=== PATIENT | male | born 1955 | race African-American/Black ===

== ENCOUNTER 2018-10-23 23:38 | Emergency (ER) | payer BC, MEDICAID ==
[~2018-10-23] VITALS: Ht 185.4 cm; Wt 97.0 kg
[2018-10-24] MEDS ORDERED: KETOROLAC 30MG/ML VIAL IV STA (01:18)
[2018-10-24 01:36] LABS: HEMATOCRIT. 40.8 % (42.0-52.0); HEMOGLOBIN. 13.8 g/dL (14.0-18.0); MEAN CORPUSCULAR HEMOGLOBIN 33.7 pg (28.0-32.0); MEAN CORPUSCULAR VOLUME 99.6 fL (80.0-94.0); MEAN PLATELET VOLUME 7.7 fl (7.4-10.4); PLATELET 197 x1000/uL (130-400); RED CELL DISTRIBUTION WIDTH 13.6 % (11.6-14.6)
[2018-10-24 01:41] LABS: CHLORIDE 105 mEq/L (98-107)
[2018-10-24 02:10] LABS: PLATELET ESTIMATE NORMAL
[2018-10-24 03:13] VITALS: BP 155/77
== END 2018-10-24 03:59 | disposition home or self-care (01) ==
LOC: ER 23:49
DX: M79.10 Myalgia, unspecified site (principal); M32.9 Systemic lupus erythematosus, unspecified; M06.9 Rheumatoid arthritis, unspecified
CPT/HCPCS: 36415; 80053; 85025; 87804; 96374; 99283; J1885

== ENCOUNTER 2022-09-07 16:19 | Inpatient (IN) | payer MEDICARE, MEDICAID ==
[~2022-09-07] VITALS: Ht 182.9 cm; Wt 82.6 kg
[2022-09-07] MEDS ORDERED: ALBUTEROL (0.083%) 2.5MG/3ML NEB HHN STA (16:21)
[2022-09-07] MEDS ORDERED: METHYLPREDNISOLONE SOD SUCC 125 MG/2 ML VIAL IV STA (16:21)
[2022-09-07] MEDS ORDERED: IPRATROPIUM BROMIDE (0.02%) 0.5MG/2.5ML NEB HHN STA (16:21)
[2022-09-07 16:51] LABS: BASOPHILS % 1.1 % (0.0-2.0); HEMATOCRIT. 45.4 % (42.0-52.0); HEMOGLOBIN. 15.2 g/dL (14.0-18.0); LYMPHOCYTES % 14.7 % (20.0-50.0); MEAN CORPUSCULAR HEMOGLOBIN 33.6 pg (28.0-32.0); MEAN CORPUSCULAR VOLUME 100.5 fL (80.0-94.0); MEAN PLATELET VOLUME 8.8 fl (7.4-10.4); NEUTROPHILS % 76.2 % (40.0-76.0); PLATELET 117 x1000/uL (130-400); RED BLOOD CELL COUNT 4.52 mill/uL (4.7-6.1); RED CELL DISTRIBUTION WIDTH 13.2 % (11.6-14.6)
[2022-09-07 17:01] LABS: CHLORIDE 98 mEq/L (98-107)
[2022-09-07] MEDS ORDERED: ASPIRIN 325MG TABLET PO ONE (17:45)
[2022-09-07] MEDS ORDERED: ONDANSETRON HCL 4MG/2ML INJ IV PRN (23:45)
[2022-09-07] MEDS ORDERED: ACETAMINOPHEN 650MG/20.3ML UDC GT PRN (23:45)
[2022-09-07] MEDS ORDERED: NALOXONE HCL 0.4MG/ML VIAL IV PRN (23:45)
[2022-09-08] MEDS: HYDROCODONE/ACETAMINOPHEN 5/325MG TABLET PO PRN ×2 (00:13→06:25)
[2022-09-08] MEDS: IPRATROPIUM/ALBUTEROL 0.5-3(2.5)MG/3ML NEB NEB PRN ×3 (00:18→09:58)
[2022-09-08 05:38] LABS: BASOPHILS % 0.3 % (0.0-2.0); HEMATOCRIT. 41.4 % (42.0-52.0); HEMOGLOBIN. 13.9 g/dL (14.0-18.0); LYMPHOCYTES % 8.3 % (20.0-50.0); MEAN CORPUSCULAR HEMOGLOBIN 33.7 pg (28.0-32.0); MEAN CORPUSCULAR VOLUME 99.9 fL (80.0-94.0); MEAN PLATELET VOLUME 8.7 fl (7.4-10.4); MONOCYTES % 3.7 % (2.0-8.0); NEUTROPHILS % 87.7 % (40.0-76.0); PLATELET 116 x1000/uL (130-400); RED BLOOD CELL COUNT 4.14 mill/uL (4.7-6.1); RED CELL DISTRIBUTION WIDTH 12.9 % (11.6-14.6)
[2022-09-08] MEDS: METHYLPREDNISOLONE SOD SUCC 125 MG/2 ML VIAL IV SCH ×3 (08:35→23:03)
[2022-09-08] MEDS: FOLIC ACID 1MG TABLET PO SCH (10:27)
[2022-09-08] MEDS ORDERED: AZITHROMYCIN 500 MG TABLET PO NR (12:30)
[2022-09-08] MEDS ORDERED: ACETYLCYSTEINE 100MG/ML 10% VIAL 4ML INH SCH (14:00)
[2022-09-08 20:34] LABS: CREATINE KINASE MB FRACTION 5.7 ng/mL (0.5-3.6)
[2022-09-09] MEDS: ACETYLCYSTEINE 200MG/ML 20% VIAL 4ML INH SCH ×2 (00:18→13:44)
[2022-09-09] MEDS: ALBUTEROL (0.083%) 2.5MG/3ML NEB HHN SCH ×3 (00:18→20:52)
[2022-09-09] MEDS: IPRATROPIUM BROMIDE (0.02%) 0.5MG/2.5ML NEB HHN SCH ×3 (00:18→20:52)
[2022-09-09] MEDS: METHYLPREDNISOLONE SOD SUCC 125 MG/2 ML VIAL IV SCH ×2 (06:10→14:40)
[2022-09-09 08:00] VITALS: BP 149/84
[2022-09-09 08:42] VITALS: BP 152/77
[2022-09-09] MEDS: FOLIC ACID 1MG TABLET PO SCH (10:06)
[2022-09-09] MEDS: AZITHROMYCIN 250 MG TABLET PO SCH (10:06)
[2022-09-09 12:00] VITALS: BP 150/77
[2022-09-09] MEDS: HYDROCODONE/ACETAMINOPHEN 10/325MG TABLET PO PRN ×2 (14:40→21:08)
[2022-09-09 14:54] LABS: CLARITY URINE CLEAR (CLEAR); COLOR URINE YELLOW (YELLOW); KETONES URINE NEGATIVE (NEGATIVE); LEUKOCYTE ESTERASE URINE NEGATIVE (NEGATIVE); NITRITE URINE NEGATIVE (NEGATIVE); OCCULT BLOOD URINE NEGATIVE (NEGATIVE); PROTEIN URINE 1+ (NEGATIVE); SPECIFIC GRAVITY URINE 1.023 (1.005-1.030)
[2022-09-09 15:11] LABS: *AMPHETAMINES SCREEN URINE NEGATIVE (NEGATIVE); *BARBITURATES SCREEN URINE NEGATIVE (NEGATIVE); *BENZODIAZEPINES SCREEN URINE NEGATIVE (NEGATIVE); *COCAINE SCREEN URINE PRESUMTIVE POSITIVE (NEGATIVE); CANNABINOID URINE SCREEN NEGATIVE (NEGATIVE); METHADONE URINE SCREEN NEGATIVE (NEGATIVE); OPIATES URINE SCREEN PRESUMTIVE POSITIVE (NEGATIVE); PHENCYCLIDINE URINE SCREEN NEGATIVE (NEGATIVE)
[2022-09-09 16:00] VITALS: BP 130/82
[2022-09-09 20:00] VITALS: BP 153/90
[2022-09-09] MEDS: METHYLPREDNISOLONE SOD SUCC 40 MG/ML VIAL IV SCH (21:07)
[2022-09-10] VITALS: BP 145/65
[2022-09-10] MEDS: ACETYLCYSTEINE 200MG/ML 20% VIAL 4ML INH SCH ×4 (01:14→21:51)
[2022-09-10] MEDS: ALBUTEROL (0.083%) 2.5MG/3ML NEB HHN SCH ×4 (01:15→21:54)
[2022-09-10] MEDS: IPRATROPIUM BROMIDE (0.02%) 0.5MG/2.5ML NEB HHN SCH ×4 (01:15→21:54)
[2022-09-10 04:00] VITALS: BP 121/57
[2022-09-10] MEDS: METHYLPREDNISOLONE SOD SUCC 40 MG/ML VIAL IV SCH ×3 (05:22→21:50)
[2022-09-10 08:00] VITALS: BP_SYST 131; BP_SYST 158; BP_DIAS 58; BP_DIAS 68
[2022-09-10] MEDS: AZITHROMYCIN 250 MG TABLET PO SCH (09:18)
[2022-09-10] MEDS: FOLIC ACID 1MG TABLET PO SCH (09:18)
[2022-09-10] MEDS: HYDROCODONE/ACETAMINOPHEN 10/325MG TABLET PO PRN ×2 (09:18→15:51)
[2022-09-10 20:00] VITALS: BP 155/82
[2022-09-11] VITALS: BP 137/78
[2022-09-11] MEDS: IPRATROPIUM BROMIDE (0.02%) 0.5MG/2.5ML NEB HHN SCH ×4 (02:44→20:34)
[2022-09-11] MEDS: ALBUTEROL (0.083%) 2.5MG/3ML NEB HHN SCH ×4 (02:44→20:35)
[2022-09-11 04:00] VITALS: BP 135/80
[2022-09-11 07:25] LABS: HEMATOCRIT. 39.7 % (42.0-52.0); MEAN CORPUSCULAR HEMOGLOBIN 33.2 pg (28.0-32.0); MEAN CORPUSCULAR VOLUME 101.5 fL (80.0-94.0); MEAN PLATELET VOLUME 9.3 fl (7.4-10.4); PLATELET 145 x1000/uL (130-400); RED BLOOD CELL COUNT 3.92 mill/uL (4.7-6.1)
[2022-09-11 08:00] VITALS: BP 130/75
[2022-09-11 08:42] LABS: CHLORIDE 98 mEq/L (98-107)
[2022-09-11 09:03] LABS: PHOSPHORUS 2.3 mg/dL (2.5-4.9)
[2022-09-11] MEDS: METHYLPREDNISOLONE SOD SUCC 40 MG/ML VIAL IV SCH ×2 (09:45→20:33)
[2022-09-11] MEDS: AZITHROMYCIN 250 MG TABLET PO SCH (09:46)
[2022-09-11] MEDS: FOLIC ACID 1MG TABLET PO SCH (09:46)
[2022-09-11] MEDS: ACETYLCYSTEINE 200MG/ML 20% VIAL 4ML INH SCH ×2 (09:50→16:20)
[2022-09-11 12:00] VITALS: BP 133/86
[2022-09-11 13:41] LABS: PLATELET ESTIMATE NORMAL
[2022-09-11 16:00] VITALS: BP 132/70
[2022-09-11 20:00] VITALS: BP 147/73
[2022-09-12] VITALS: BP 155/72
[2022-09-12] MEDS: ALBUTEROL (0.083%) 2.5MG/3ML NEB HHN SCH ×4 (02:20→22:06)
[2022-09-12] MEDS: IPRATROPIUM BROMIDE (0.02%) 0.5MG/2.5ML NEB HHN SCH ×4 (02:21→22:02)
[2022-09-12] MEDS: ACETYLCYSTEINE 200MG/ML 20% VIAL 4ML INH SCH ×4 (02:22→22:08)
[2022-09-12 04:00] VITALS: BP 123/55
[2022-09-12 08:00] VITALS: BP 146/78
[2022-09-12] MEDS ORDERED: MED4 MT (08:12)
[2022-09-12 08:26] LABS: FOLIC ACID (FOLATE) SERUM 12.1 ng/mL (>5.38)
[2022-09-12] MEDS: AZITHROMYCIN 250 MG TABLET PO SCH (10:12)
[2022-09-12] MEDS: FOLIC ACID 1MG TABLET PO SCH (10:12)
[2022-09-12] MEDS: METHYLPREDNISOLONE SOD SUCC 40 MG/ML VIAL IV SCH ×2 (10:15→21:16)
[2022-09-12 12:00] VITALS: BP 127/89
[2022-09-12 16:00] VITALS: BP 144/98
[2022-09-12 20:00] VITALS: BP 161/84
[2022-09-13] VITALS: BP 158/83
[2022-09-13] MEDS: ALBUTEROL (0.083%) 2.5MG/3ML NEB HHN SCH ×4 (01:59→14:59)
[2022-09-13] MEDS: IPRATROPIUM BROMIDE (0.02%) 0.5MG/2.5ML NEB HHN SCH ×4 (01:59→14:59)
[2022-09-13 04:00] VITALS: BP 135/81
[2022-09-13 08:00] VITALS: BP 142/76
[2022-09-13] MEDS: METHYLPREDNISOLONE SOD SUCC 40 MG/ML VIAL IV SCH ×2 (08:43→20:50)
[2022-09-13] MEDS: FOLIC ACID 1MG TABLET PO SCH (08:43)
[2022-09-13] MEDS: ACETYLCYSTEINE 200MG/ML 20% VIAL 4ML INH SCH ×3 (09:26→22:42)
[2022-09-13 12:00] VITALS: BP 127/79
[2022-09-13] MEDS: FUROSEMIDE 40MG/4ML VIAL IVP SCH (16:30)
[2022-09-13 16:56] LABS: BG BASE EXCESS 11.3 mmol/L (-2.0-2.0); BG CARBOXYHEMOGLOBIN 0.5 % (0.5-1.5); BG DEOXYHEMOGLOBIN 8.5 % (0.0-5.0); BG FRACTION INSPIRED OXYGEN 32; BG HCO3 ACT 37.8 mmol/L (22.0-26.0); BG METHEMOGLOBIN 0.2 % (0.0-1.5); BG OXYGEN SATURATION 91.4 % (92.0-98.5); BG OXYHEMOGLOBIN 90.8 % (94.0-97.0); BG PCO2 55.4 mmHg (35.0-45.0); BG PH 7.452 (7.350-7.450); BG PO2 59.1 mmHg (75.0-100.0); BG SAMPLE SITE RIGHT RADIAL; BG TOTAL HEMOGLOBIN 15.9 g/dL (12.0-18.0); BG VENT MODE NASAL CANNULA
[2022-09-13 20:00] VITALS: BP 136/76
[2022-09-13] MEDS: IPRATROPIUM BROMIDE (0.02%) 0.5MG/2.5ML NEB HHN PRN (20:01)
[2022-09-13] MEDS: ALBUTEROL (0.083%) 2.5MG/3ML NEB HHN PRN (20:01)
[2022-09-14] VITALS: BP 125/65
[2022-09-14] MEDS: ALBUTEROL (0.083%) 2.5MG/3ML NEB HHN PRN (02:33)
[2022-09-14] MEDS: IPRATROPIUM BROMIDE (0.02%) 0.5MG/2.5ML NEB HHN PRN (02:33)
[2022-09-14 04:00] VITALS: BP 151/79
[2022-09-14 08:00] VITALS: BP 135/87
[2022-09-14] MEDS: IPRATROPIUM BROMIDE (0.02%) 0.5MG/2.5ML NEB HHN SCH ×3 (08:41→20:49)
[2022-09-14] MEDS: ALBUTEROL (0.083%) 2.5MG/3ML NEB HHN SCH ×3 (08:41→20:48)
[2022-09-14] MEDS: FOLIC ACID 1MG TABLET PO SCH (09:14)
[2022-09-14] MEDS: FUROSEMIDE 40MG/4ML VIAL IVP SCH (09:14)
[2022-09-14] MEDS: METHYLPREDNISOLONE SOD SUCC 40 MG/ML VIAL IV SCH (09:14)
[2022-09-14 10:06] LABS: HEMATOCRIT. 43.3 % (42.0-52.0); HEMOGLOBIN. 14.6 g/dL (14.0-18.0); MEAN CORPUSCULAR HEMOGLOBIN 33.5 pg (28.0-32.0); MEAN CORPUSCULAR VOLUME 99.4 fL (80.0-94.0); MEAN PLATELET VOLUME 8.4 fl (7.4-10.4); PLATELET 337 x1000/uL (130-400); RED BLOOD CELL COUNT 4.36 mill/uL (4.7-6.1); RED CELL DISTRIBUTION WIDTH 13.5 % (11.6-14.6)
[2022-09-14 10:13] LABS: CHLORIDE 96 mEq/L (98-107)
[2022-09-14] MEDS ORDERED: METHYLPREDNISOLONE SOD SUCC 40 MG/ML VIAL IV NR (10:30)
[2022-09-14 10:52] LABS: BG BASE EXCESS 13.1 mmol/L (-2.0-2.0); BG CARBOXYHEMOGLOBIN 0.5 % (0.5-1.5); BG DEOXYHEMOGLOBIN 8.9 % (0.0-5.0); BG HCO3 ACT 40.6 mmol/L (22.0-26.0); BG METHEMOGLOBIN 0.2 % (0.0-1.5); BG OXYHEMOGLOBIN 90.4 % (94.0-97.0); BG PCO2 61.5 mmHg (35.0-45.0); BG PH 7.437 (7.350-7.450); BG PO2 59.7 mmHg (75.0-100.0); BG SAMPLE SITE RIGHT BRACHIAL; BG TOTAL HEMOGLOBIN 16.1 g/dL (12.0-18.0); BG VENT MODE MASK - VENTI
[2022-09-14 11:34] LABS: PLATELET ESTIMATE NORMAL
[2022-09-14 12:00] VITALS: BP 106/78
[2022-09-14] MEDS ORDERED: METHYLPREDNISOLONE SOD SUCC 125 MG/2 ML VIAL IV NR (14:45)
[2022-09-14] MEDS ORDERED: CEFTRIAXONE 1,000 MG in DEXTROSE 5% WATER 50 ML IV SCH (15:30)
[2022-09-14 16:00] VITALS: BP 152/68
[2022-09-14] MEDS ORDERED: AZITHROMYCIN 500 MG in DEXT 5% WATER 250 ML IV SCH (16:00)
[2022-09-14 20:00] VITALS: BP 147/93
[2022-09-14] MEDS: THEOPHYLLINE ANHYDROUS 80 MG/15 ML 120ML PO SCH (21:00)
[2022-09-14] MEDS: METHYLPREDNISOLONE SOD SUCC 125 MG/2 ML VIAL IV SCH (21:14)
[2022-09-15] VITALS: BP 148/85
[2022-09-15] MEDS: ALBUTEROL (0.083%) 2.5MG/3ML NEB HHN SCH ×5 (01:49→20:25)
[2022-09-15] MEDS: IPRATROPIUM BROMIDE (0.02%) 0.5MG/2.5ML NEB HHN SCH ×6 (01:49→21:32)
[2022-09-15 04:00] VITALS: BP 140/83
[2022-09-15] MEDS: METHYLPREDNISOLONE SOD SUCC 125 MG/2 ML VIAL IV SCH ×3 (06:23→21:23)
[2022-09-15] MEDS: THEOPHYLLINE ANHYDROUS 80 MG/15 ML 120ML PO SCH (06:23)
[2022-09-15 08:00] VITALS: BP 139/86
[2022-09-15] MEDS: FUROSEMIDE 40MG/4ML VIAL IVP SCH (08:42)
[2022-09-15] MEDS: FOLIC ACID 1MG TABLET PO SCH (08:42)
[2022-09-15 12:00] VITALS: BP 129/65
[2022-09-15 12:19] LABS: BG BASE EXCESS 9.1 mmol/L (-2.0-2.0); BG CARBOXYHEMOGLOBIN 0.4 % (0.5-1.5); BG DEOXYHEMOGLOBIN 7.6 % (0.0-5.0); BG FRACTION INSPIRED OXYGEN 35; BG METHEMOGLOBIN 0.1 % (0.0-1.5); BG OXYGEN SATURATION 92.4 % (92.0-98.5); BG OXYHEMOGLOBIN 91.9 % (94.0-97.0); BG PCO2 69.9 mmHg (35.0-45.0); BG PH 7.353 (7.350-7.450); BG PO2 69.2 mmHg (75.0-100.0); BG SAMPLE SITE RIGHT RADIAL; BG TOTAL HEMOGLOBIN 16.1 g/dL (12.0-18.0); BG VENT MODE MASK - VENTI
[2022-09-15 13:06] LABS: 25-HYDROXY VITAMIN D3 10 ng/mL (.)
[2022-09-15] MEDS ORDERED: VANCOMYCIN 1500MG in DEXTROSE 5% WATER 250ML IV NR (15:00)
[2022-09-15] MEDS: PIPERACILLIN/TAZOBACTAM 3.375 G in DEXTROSE 5% WATER 50 ML IV SCH ×2 (15:03→21:58)
[2022-09-15 16:00] VITALS: BP 135/78
[2022-09-15] MEDS: ERGOCALCIFEROL 50000UNITS CAPSULE PO SCH (17:38)
[2022-09-15 20:00] VITALS: BP 114/72
[2022-09-15] MEDS: VANCOMYCIN 1G PREMIX 200 ML IV SCH (23:52)
[2022-09-16] VITALS (12 sets, daily range): BP systolic 113–159; BP diastolic 51–91
[2022-09-16] MEDS: PIPERACILLIN/TAZOBACTAM 3.375 G in DEXTROSE 5% WATER 50 ML IV SCH ×3 (05:00→21:50)
[2022-09-16] MEDS: METHYLPREDNISOLONE SOD SUCC 125 MG/2 ML VIAL IV SCH ×3 (05:00→21:49)
[2022-09-16] MEDS ORDERED: FUROSEMIDE 40MG/4ML VIAL IVP SCH ×2 (08:45→18:00)
[2022-09-16] MEDS: VANCOMYCIN 1G PREMIX 200 ML IV SCH ×2 (08:47→20:38)
[2022-09-16] MEDS: FOLIC ACID 1MG TABLET PO SCH (08:48)
[2022-09-16] MEDS: IPRATROPIUM BROMIDE (0.02%) 0.5MG/2.5ML NEB HHN SCH ×3 (09:00→21:26)
[2022-09-16] MEDS: ALBUTEROL (0.083%) 2.5MG/3ML NEB HHN SCH ×3 (09:00→21:25)
[2022-09-16] MEDS: AMLODIPINE 5MG TABLET PO SCH (09:01)
[2022-09-16] MEDS: ISOSORBIDE DINITRATE 10MG TABLET PO SCH ×3 (09:01→17:31)
[2022-09-16] MEDS: SPIRONOLACTONE 25MG TABLET PO SCH (09:02)
[2022-09-16 12:07] LABS: BG BASE EXCESS 11.9 mmol/L (-2.0-2.0); BG CARBOXYHEMOGLOBIN 0.3 % (0.5-1.5); BG HCO3 ACT 40.3 mmol/L (22.0-26.0); BG METHEMOGLOBIN 0.1 % (0.0-1.5); BG OXYHEMOGLOBIN 93.6 % (94.0-97.0); BG PCO2 68.7 mmHg (35.0-45.0); BG PH 7.386 (7.350-7.450); BG PO2 70.6 mmHg (75.0-100.0); BG SAMPLE SITE RIGHT BRACHIAL; BG TOTAL HEMOGLOBIN 14.9 g/dL (12.0-18.0); BG VENT MODE VENTI MASK
[2022-09-17] VITALS (17 sets, daily range): BP systolic 100–161; BP diastolic 54–90
[2022-09-17] MEDS: ALBUTEROL (0.083%) 2.5MG/3ML NEB HHN SCH ×4 (01:10→20:17)
[2022-09-17] MEDS: IPRATROPIUM BROMIDE (0.02%) 0.5MG/2.5ML NEB HHN SCH ×4 (01:11→20:17)
[2022-09-17] MEDS: METHYLPREDNISOLONE SOD SUCC 125 MG/2 ML VIAL IV SCH ×2 (05:01→13:58)
[2022-09-17] MEDS: PIPERACILLIN/TAZOBACTAM 3.375 G in DEXTROSE 5% WATER 50 ML IV SCH ×3 (05:01→21:10)
[2022-09-17 05:49] LABS: CHLORIDE 92 mEq/L (98-107)
[2022-09-17] MEDS: AMLODIPINE 5MG TABLET PO SCH (08:28)
[2022-09-17] MEDS: VANCOMYCIN 1G PREMIX 200 ML IV SCH (08:28)
[2022-09-17] MEDS: ISOSORBIDE DINITRATE 10MG TABLET PO SCH ×3 (08:28→17:57)
[2022-09-17] MEDS: FOLIC ACID 1MG TABLET PO SCH (08:28)
[2022-09-17] MEDS: SPIRONOLACTONE 25MG TABLET PO SCH (08:28)
[2022-09-17] MEDS ORDERED: FUROSEMIDE 20MG/2ML VIAL IVP SCH (09:00)
[2022-09-17] MEDS: METHYLPREDNISOLONE SOD SUCC 40 MG/ML VIAL IV SCH (17:59)
[2022-09-17] MEDS: VANCOMYCIN 750MG PREMIX 150 ML IV SCH (20:15)
[2022-09-18] VITALS: BP 137/70
[2022-09-18] MEDS: ALBUTEROL (0.083%) 2.5MG/3ML NEB HHN SCH ×4 (01:25→20:25)
[2022-09-18] MEDS: IPRATROPIUM BROMIDE (0.02%) 0.5MG/2.5ML NEB HHN SCH ×4 (01:25→20:25)
[2022-09-18 04:00] VITALS: BP 131/63
[2022-09-18] MEDS: PIPERACILLIN/TAZOBACTAM 3.375 G in DEXTROSE 5% WATER 50 ML IV SCH ×3 (05:06→21:35)
[2022-09-18 06:18] LABS: CHLORIDE 94 mEq/L (98-107); PHOSPHORUS 1.7 mg/dL (2.5-4.9)
[2022-09-18 08:00] VITALS: BP 128/74
[2022-09-18] MEDS: METHYLPREDNISOLONE SOD SUCC 40 MG/ML VIAL IV SCH ×2 (09:38→18:15)
[2022-09-18] MEDS: AMLODIPINE 5MG TABLET PO SCH (09:38)
[2022-09-18] MEDS: ISOSORBIDE DINITRATE 10MG TABLET PO SCH ×3 (09:38→18:15)
[2022-09-18] MEDS: FOLIC ACID 1MG TABLET PO SCH (09:38)
[2022-09-18] MEDS: SPIRONOLACTONE 25MG TABLET PO SCH (09:39)
[2022-09-18] MEDS: VANCOMYCIN 750MG PREMIX 150 ML IV SCH ×2 (09:43→21:35)
[2022-09-18 10:52] LABS: HEMATOCRIT. 40.2 % (42.0-52.0); HEMOGLOBIN. 13.2 g/dL (14.0-18.0); MEAN CORPUSCULAR HEMOGLOBIN 32.9 pg (28.0-32.0); PLATELET 290 x1000/uL (130-400); RED BLOOD CELL COUNT 4.02 mill/uL (4.7-6.1); RED CELL DISTRIBUTION WIDTH 13.4 % (11.6-14.6)
[2022-09-18 12:00] VITALS: BP 114/79
[2022-09-18 13:32] LABS: PLATELET ESTIMATE NORMAL
[2022-09-18 16:00] VITALS: BP 137/75
[2022-09-18 20:00] VITALS: BP 120/71
[2022-09-19] VITALS: BP 151/75
[2022-09-19] MEDS: IPRATROPIUM BROMIDE (0.02%) 0.5MG/2.5ML NEB HHN SCH ×3 (02:20→20:57)
[2022-09-19] MEDS: ALBUTEROL (0.083%) 2.5MG/3ML NEB HHN SCH ×4 (02:20→20:58)
[2022-09-19 04:00] VITALS: BP 171/70
[2022-09-19 05:41] LABS: CHLORIDE 97 mEq/L (98-107)
[2022-09-19] MEDS: PIPERACILLIN/TAZOBACTAM 3.375 G in DEXTROSE 5% WATER 50 ML IV SCH ×2 (06:37→13:37)
[2022-09-19 08:00] VITALS: BP 135/87
[2022-09-19] MEDS: FUROSEMIDE 20MG TABLET PO SCH (09:08)
[2022-09-19] MEDS: METHYLPREDNISOLONE SOD SUCC 40 MG/ML VIAL IV SCH (09:08)
[2022-09-19] MEDS: AMLODIPINE 5MG TABLET PO SCH (09:08)
[2022-09-19] MEDS: ISOSORBIDE DINITRATE 10MG TABLET PO SCH ×3 (09:10→16:42)
[2022-09-19] MEDS: SPIRONOLACTONE 25MG TABLET PO SCH (09:10)
[2022-09-19] MEDS: FOLIC ACID 1MG TABLET PO SCH (09:11)
[2022-09-19 12:00] VITALS: BP 121/69
[2022-09-19] MEDS ORDERED: ALBUTEROL (0.083%) 2.5MG/3ML NEB HHN PRN (15:15)
[2022-09-19 16:00] VITALS: BP 124/72
[2022-09-19 20:00] VITALS: BP 142/77
[2022-09-19] MEDS: BUDESONIDE 0.5MG/2ML NEB HHN SCH (20:58)
[2022-09-19] MEDS: CEFTRIAXONE 1,000 MG in DEXTROSE 5% WATER 50 ML IV SCH (23:02)
[2022-09-20] VITALS: BP 131/77
[2022-09-20] MEDS: IPRATROPIUM BROMIDE (0.02%) 0.5MG/2.5ML NEB HHN SCH ×4 (02:46→20:14)
[2022-09-20] MEDS: ALBUTEROL (0.083%) 2.5MG/3ML NEB HHN SCH ×4 (02:47→20:13)
[2022-09-20 04:00] VITALS: BP 129/86
[2022-09-20 08:00] VITALS: BP 117/77
[2022-09-20 08:09] LABS: BASOPHILS % 0.1 % (0.0-2.0); EOSINOPHILS % 0.1 % (0.0-5.0); HEMATOCRIT. 38.8 % (42.0-52.0); HEMOGLOBIN. 12.7 g/dL (14.0-18.0); LYMPHOCYTES % 14.4 % (20.0-50.0); MEAN PLATELET VOLUME 8.1 fl (7.4-10.4); NEUTROPHILS % 74.4 % (40.0-76.0); PLATELET 234 x1000/uL (130-400); RED BLOOD CELL COUNT 3.85 mill/uL (4.7-6.1); RED CELL DISTRIBUTION WIDTH 13.6 % (11.6-14.6)
[2022-09-20 08:41] LABS: CHLORIDE 97 mEq/L (98-107)
[2022-09-20 08:59] LABS: PHOSPHORUS 2.5 mg/dL (2.5-4.9)
[2022-09-20] MEDS: BUDESONIDE 0.5MG/2ML NEB HHN SCH ×2 (09:03→20:14)
[2022-09-20] MEDS: ISOSORBIDE DINITRATE 10MG TABLET PO SCH ×3 (09:07→17:30)
[2022-09-20] MEDS: SPIRONOLACTONE 25MG TABLET PO SCH (09:07)
[2022-09-20] MEDS: FUROSEMIDE 20MG TABLET PO SCH (09:07)
[2022-09-20] MEDS: AMLODIPINE 5MG TABLET PO SCH (09:08)
[2022-09-20] MEDS: PREDNISONE 20MG TABLET PO SCH (09:08)
[2022-09-20] MEDS: FOLIC ACID 1MG TABLET PO SCH (09:09)
[2022-09-20 12:00] VITALS: BP 124/74
[2022-09-20 16:00] VITALS: BP 134/58
[2022-09-20 20:00] VITALS: BP 144/64
[2022-09-20] MEDS: CEFTRIAXONE 1,000 MG in DEXTROSE 5% WATER 50 ML IV SCH (21:08)
[2022-09-21] VITALS: BP 138/77
[2022-09-21] MEDS: IPRATROPIUM BROMIDE (0.02%) 0.5MG/2.5ML NEB HHN SCH ×4 (01:26→21:20)
[2022-09-21] MEDS: ALBUTEROL (0.083%) 2.5MG/3ML NEB HHN SCH ×4 (01:27→21:20)
[2022-09-21 04:00] VITALS: BP 137/67
[2022-09-21 08:00] VITALS: BP 115/86
[2022-09-21] MEDS: BUDESONIDE 0.5MG/2ML NEB HHN SCH ×2 (08:07→21:19)
[2022-09-21] MEDS: ISOSORBIDE DINITRATE 10MG TABLET PO SCH ×3 (08:29→17:16)
[2022-09-21] MEDS: PREDNISONE 20MG TABLET PO SCH (08:29)
[2022-09-21] MEDS: SPIRONOLACTONE 25MG TABLET PO SCH (08:30)
[2022-09-21] MEDS: FUROSEMIDE 20MG TABLET PO SCH (08:30)
[2022-09-21] MEDS: FOLIC ACID 1MG TABLET PO SCH (08:31)
[2022-09-21] MEDS: AMLODIPINE 5MG TABLET PO SCH (08:31)
[2022-09-21 12:00] VITALS: BP 114/88
[2022-09-21 16:00] VITALS: BP 123/76
[2022-09-21 20:00] VITALS: BP_SYST 114; BP_SYST 138; BP_DIAS 49; BP_DIAS 86
[2022-09-21] MEDS: CEFTRIAXONE 1,000 MG in DEXTROSE 5% WATER 50 ML IV SCH (20:41)
[2022-09-22] VITALS: BP 118/51
[2022-09-22] MEDS: ALBUTEROL (0.083%) 2.5MG/3ML NEB HHN SCH ×4 (02:34→21:22)
[2022-09-22] MEDS: IPRATROPIUM BROMIDE (0.02%) 0.5MG/2.5ML NEB HHN SCH ×4 (02:34→21:22)
[2022-09-22 04:00] VITALS: BP 123/63
[2022-09-22 08:00] VITALS: BP 121/78
[2022-09-22] MEDS: SPIRONOLACTONE 25MG TABLET PO SCH (08:46)
[2022-09-22] MEDS: PREDNISONE 20MG TABLET PO SCH (08:46)
[2022-09-22] MEDS: FUROSEMIDE 20MG TABLET PO SCH (08:46)
[2022-09-22] MEDS: AMLODIPINE 5MG TABLET PO SCH (08:46)
[2022-09-22] MEDS: FOLIC ACID 1MG TABLET PO SCH (08:46)
[2022-09-22] MEDS: ISOSORBIDE DINITRATE 10MG TABLET PO SCH ×3 (08:47→17:00)
[2022-09-22] MEDS: BUDESONIDE 0.5MG/2ML NEB HHN SCH ×2 (09:03→21:23)
[2022-09-22 12:00] VITALS: BP 120/60
[2022-09-22] MEDS: ERGOCALCIFEROL 50000UNITS CAPSULE PO SCH (15:30)
[2022-09-22 16:00] VITALS: BP 125/51
[2022-09-22 20:00] VITALS: BP 119/80
[2022-09-22] MEDS: CEFTRIAXONE 1,000 MG in DEXTROSE 5% WATER 50 ML IV SCH (20:49)
[2022-09-23] VITALS: BP 138/64
[2022-09-23] MEDS: ALBUTEROL (0.083%) 2.5MG/3ML NEB HHN SCH (01:47)
[2022-09-23] MEDS: IPRATROPIUM BROMIDE (0.02%) 0.5MG/2.5ML NEB HHN SCH ×3 (01:47→08:52)
[2022-09-23 04:00] VITALS: BP 125/71
[2022-09-23 08:00] VITALS: BP 116/51
[2022-09-23] MEDS: FOLIC ACID 1MG TABLET PO SCH (08:54)
[2022-09-23] MEDS: ISOSORBIDE DINITRATE 10MG TABLET PO SCH (08:54)
[2022-09-23] MEDS: PREDNISONE 20MG TABLET PO SCH (08:54)
[2022-09-23] MEDS: AMLODIPINE 5MG TABLET PO SCH (08:55)
[2022-09-23] MEDS: FUROSEMIDE 20MG TABLET PO SCH (08:55)
[2022-09-23] MEDS: SPIRONOLACTONE 25MG TABLET PO SCH (08:55)
[2022-09-23 12:00] VITALS: BP 135/99
[2022-09-23 13:27] VITALS: BP 122/62
== END 2022-09-23 17:44 | disposition home or self-care (01) | DRG 871 ==
LOC: ER 16:44 → 7EST 09-08 18:49 → ENRESERV 09-08 18:59 → 7EST 09-10 22:29 → 5EST 09-16 01:05 → 7WST 09-21 12:59
PROVIDERS: ADMIT Internal Medicine Nephrology; ATTEND Internal Medicine Nephrology
PROC: 5A09357 Assistance with Respiratory Ventilation, Less than 24 Consecutive Hours, Continuous Positive Airway Pressure (ICD-10-PCS; principal; 2022-09-15)
PROC: 5A09357 Assistance with Respiratory Ventilation, Less than 24 Consecutive Hours, Continuous Positive Airway Pressure (ICD-10-PCS; 2022-09-20)
DX: A41.9 Sepsis, unspecified organism (principal); I21.A1 Myocardial infarction type 2; J15.0 Pneumonia due to Klebsiella pneumoniae; J96.21 Acute and chronic respiratory failure with hypoxia; I50.33 Acute on chronic diastolic (congestive) heart failure; J96.22 Acute and chronic respiratory failure with hypercapnia; E44.1 Mild protein-calorie malnutrition; E87.1 Hypo-osmolality and hyponatremia; N17.9 Acute kidney failure, unspecified; J68.0 Bronchitis and pneumonitis due to chemicals, gases, fumes and vapors; J44.0 Chronic obstructive pulmonary disease with (acute) lower respiratory infection; J44.1 Chronic obstructive pulmonary disease with (acute) exacerbation; Z20.822 Contact with and (suspected) exposure to COVID-19; I11.0 Hypertensive heart disease with heart failure; D69.6 Thrombocytopenia, unspecified; M32.9 Systemic lupus erythematosus, unspecified; M06.9 Rheumatoid arthritis, unspecified; F14.10 Cocaine abuse, uncomplicated; E55.9 Vitamin D deficiency, unspecified; G89.4 Chronic pain syndrome; D63.8 Anemia in other chronic diseases classified elsewhere; Z68.24 Body mass index [BMI] 24.0-24.9, adult; Z99.81 Dependence on supplemental oxygen; Z87.891 Personal history of nicotine dependence
CPT/HCPCS: 36415; 36600; 71045; 71250; 80048; 80053; 80202; 80305; 81003; 82306; 82375; 82550; 82553; 82607; 82746; 82805; 83735; 83880; 84100; 84145; 84484; 85025; 86850; 86900; 87070; 87077; 87186; 87426; 87804; 92610; 93005; 93306; 94640; 94660; 96374; 97161; 97166; 97530; 99285; C9803; J0456; J0696; J1940; J2543; J2920; J2930; J3370; J7060; J7512; J7608; J7626

== ENCOUNTER 2024-01-24 21:23 | Inpatient (IN) | payer MEDICARE, MEDICAID ==
[~2024-01-24] VITALS: Ht 182.9 cm; Wt 80.3 kg
[2024-01-24] MEDS: FUROSEMIDE 40MG/4ML VIAL IV NR (22:23)
[2024-01-24] MEDS: CALCIUM GLUCONATE 1GM PREMIX 50 ML IV ONE (22:23)
[2024-01-24 23:10] LABS: BASOPHILS % 0.9 % (0.0-2.0); DIFFERENTIAL COMMENT 0; EOSINOPHILS % 0.7 % (0.0-5.0); HEMATOCRIT. 41.5 % (42.0-52.0); HEMOGLOBIN. 13.8 g/dL (14.0-18.0); LYMPHOCYTES % 13.8 % (20.0-50.0); MEAN CORPUSCULAR HGB CONC 33.1 g/dL (31.0-37.0); MEAN CORPUSCULAR VOLUME 102.6 fL (80.0-94.0); MEAN PLATELET VOLUME 7.8 fl (7.4-10.4); MONOCYTES % 9.4 % (2.0-8.0); NEUTROPHILS % 75.2 % (40.0-76.0); PLATELET 249 x1000/uL (130-400); RED BLOOD CELL COUNT 4.05 mill/uL (4.7-6.1); RED CELL DISTRIBUTION WIDTH 13.2 % (11.6-14.6); WHITE BLOOD COUNT 5.3 x1000/uL (4.5-11.0)
[2024-01-24 23:14] LABS: CHLORIDE 100 mEq/L (98-107); SODIUM 142 mEq/L (136-145)
[2024-01-24 23:15] LABS: CALCIUM 9.4 mg/dL (8.7-10.4); CARBON DIOXIDE 36 mEq/L (21-32)
[2024-01-24 23:20] LABS: CREATININE 1.1 mg/dL (0.6-1.3); GLUCOSE 95 mg/dL (70-105); UREA NITROGEN BLOOD 18 mg/dL (9-23)
[2024-01-24] MEDS: CEFTRIAXONE 1GM/50ML 50 ML IV NR (23:20)
[2024-01-24 23:21] LABS: ALANINE AMINOTRANSFERASE 11 IU/L (10-49); TROPONIN I HIGH SENSITIVITY 42 ng/L (3.0-53)
[2024-01-24 23:22] LABS: ALBUMIN 4.3 g/dL (3.2-4.8); ASPARTATE AMINOTRANSFERASE 27 IU/L (<34); BILIRUBIN TOTAL 0.9 mg/dL (0.1-1.0); PROTEIN TOTAL 8.4 g/dL (6.0-8.3)
[2024-01-24] MEDS: DOXYCYCLINE 100MG/100ML 100 ML IV NR (23:45)
[2024-01-25] VITALS (11 sets, daily range): BP systolic 107–136; BP diastolic 61–91; PULSE 98–114; RESP 20–48; TEMP 98.1–99.8; O2SAT 90–100
[2024-01-25 01:07] LABS: TROPONIN I HIGH SENSITIVITY 45 ng/L (3.0-53)
[2024-01-25] MEDS: FUROSEMIDE 40MG/4ML VIAL IVP NR (08:33)
[2024-01-25] MEDS ORDERED: PRED5TAB PO (08:34)
[2024-01-25] MEDS ORDERED: ALBU2.5V13 NEB (08:34)
[2024-01-25] MEDS ORDERED: FOLI-43 PO (08:34)
[2024-01-25] MEDS ORDERED: HYDR200T35 PO (08:34)
[2024-01-25] MEDS ORDERED: HYDR-4009 PO (08:34)
[2024-01-25] MEDS ORDERED: METH2.5T PO (08:34)
[2024-01-25] MEDS ORDERED: CARI350T27 PO (08:34)
[2024-01-25] MEDS ORDERED: ALBU18HF2 PO (08:34)
[2024-01-25 10:42] LABS: BG BASE EXCESS 5.5 mmol/L (-2.0-2.0); BG CARBOXYHEMOGLOBIN 0.6 % (0.5-1.5); BG DEOXYHEMOGLOBIN 12.8 % (0.0-5.0); BG FRACTION INSPIRED OXYGEN 21; BG HCO3 ACT 33.8 mmol/L (22.0-26.0); BG METHEMOGLOBIN 0.3 % (0.0-1.5); BG OXYGEN SATURATION 87.1 % (92.0-98.5); BG OXYHEMOGLOBIN 86.3 % (94.0-97.0); BG PCO2 65.4 mmHg (35.0-45.0); BG PH 7.331 (7.350-7.450); BG PO2 55.2 mmHg (75.0-100.0); BG SAMPLE SITE LEFT RADIAL; BG TOTAL HEMOGLOBIN 15.1 g/dL (12.0-18.0); BG VENT MODE ROOM AIR
[2024-01-25] MEDS: IPRATROPIUM/ALBUTEROL 0.5-3(2.5)MG/3ML NEB HHN SCH (12:23)
[2024-01-25] MEDS ORDERED: ONDANSETRON HCL 4MG/2ML INJ IV PRN (15:15)
[2024-01-25] MEDS ORDERED: IPRATROPIUM/ALBUTEROL 0.5-3(2.5)MG/3ML NEB HHN PRN (15:15)
[2024-01-25] MEDS ORDERED: ACETAMINOPHEN 325MG TABLET PO PRN (15:15)
[2024-01-25] MEDS: FOLIC ACID 1MG TABLET PO SCH (17:52)
[2024-01-25] MEDS: METHYLPREDNISOLONE SOD SUCC 40MG/ML (ACT-O-VIAL) IV SCH (17:52)
[2024-01-25] MEDS: LEVOFLOXACIN 500MG PREMIX 100 ML IV SCH (17:53)
[2024-01-25] MEDS: ENOXAPARIN 40MG/0.4ML SYR SUBCUT SCH (18:00)
[2024-01-25] MEDS: HYDROCODONE/ACETAMINOPHEN 5/325MG TABLET PO PRN (19:29)
[2024-01-25] MEDS: HYDROCODONE/ACETAMINOPHEN 10/325MG TABLET PO PRN (22:44)
[2024-01-26] VITALS (17 sets, daily range): BP systolic 102–150; BP diastolic 59–85; PULSE 77–111; RESP 15–33; TEMP 97.6–98.8; O2SAT 93–99
[2024-01-26 07:41] LABS: BASOPHILS % 0.2 % (0.0-2.0); DIFFERENTIAL COMMENT 0; HEMATOCRIT. 37.7 % (42.0-52.0); HEMOGLOBIN. 12.7 g/dL (14.0-18.0); MEAN CORPUSCULAR HEMOGLOBIN 33.7 pg (28.0-32.0); MEAN CORPUSCULAR HGB CONC 33.6 g/dL (31.0-37.0); MEAN CORPUSCULAR VOLUME 100.2 fL (80.0-94.0); MEAN PLATELET VOLUME 8.4 fl (7.4-10.4); MONOCYTES % 2.2 % (2.0-8.0); NEUTROPHILS % 89.6 % (40.0-76.0); PLATELET 219 x1000/uL (130-400); RED BLOOD CELL COUNT 3.77 mill/uL (4.7-6.1); RED CELL DISTRIBUTION WIDTH 13.1 % (11.6-14.6)
[2024-01-26 07:48] LABS: CREATINE KINASE MB FRACTION 4.5 ng/mL (0.5-3.6)
[2024-01-26 07:49] LABS: CALCIUM 9.1 mg/dL (8.7-10.4); CARBON DIOXIDE 36 mEq/L (21-32); CHLORIDE 95 mEq/L (98-107); POTASSIUM 4.5 mEq/L (3.5-5.1); SODIUM 136 mEq/L (136-145); TROPONIN I HIGH SENSITIVITY 23 ng/L (3.0-53)
[2024-01-26 07:53] LABS: THYROID STIMULATING HORMONE 0.53 uIU/mL (0.55-4.78)
[2024-01-26 07:54] LABS: CREATINE KINASE 194 IU/L (46-171); CREATININE 1.1 mg/dL (0.6-1.3); GLUCOSE 172 mg/dL (70-105); T4 FREE 0.96 ng/dL (0.89-1.76)
[2024-01-26 07:55] LABS: TRIGLYCERIDE 63 mg/dL (0-150); UREA NITROGEN BLOOD 31 mg/dL (9-23)
[2024-01-26 07:56] LABS: CHOLESTEROL 169 mg/dL (<200); LDL CHOLESTEROL 101 mg/dL (5-100)
[2024-01-26 07:57] LABS: HDL CHOLESTEROL 42 mg/dL (>55)
[2024-01-26 08:09] LABS: HEPATITIS B SURFACE ANTIGEN NEGATIVE (Negative)
[2024-01-26] MEDS: HYDROXYCHLOROQUINE SULFATE 200MG TABLET PO SCH (08:16)
[2024-01-26 08:30] LABS: HEPATITIS C AB NON REACTIVE (Neg) (Negative)
[2024-01-27] VITALS (17 sets, daily range): BP systolic 116–150; BP diastolic 58–85; PULSE 71–108; RESP 15–30; TEMP 97.5–98.3; O2SAT 95–98
[2024-01-27] MEDS ORDERED: NALOXONE HCL 0.4MG/ML VIAL IV PRN (11:00)
[2024-01-27] MEDS ORDERED: DOXYCYCLINE 100MG/100ML 100 ML IV SCH (18:00)
[2024-01-27] MEDS: ATORVASTATIN CALCIUM 20MG TABLET PO SCH (20:50)
[2024-01-27] MEDS: CEFTRIAXONE 1GM/50ML 50ML IV SCH (20:50)
[2024-01-27] MEDS: DOXYCYCLINE 100MG/100ML 100 ML IV SCH (21:38)
[2024-01-28] VITALS (21 sets, daily range): BP systolic 129–179; BP diastolic 60–98; PULSE 88–105; RESP 16–39; TEMP 96.8–98.9; O2SAT 95–100
[2024-01-29] VITALS (16 sets, daily range): BP systolic 147–163; BP diastolic 63–105; PULSE 92–113; RESP 17–28; TEMP 97.6–98.2; O2SAT 93–100
== END 2024-01-30 00:05 | disposition home or self-care (01) | DRG 190 ==
LOC: ER 21:23 → MICUSO 23:42 → 5EST 01-25 13:49
PROVIDERS: ADMIT Internal Medicine; ATTEND Internal Medicine
PROC: 5A09357 Assistance with Respiratory Ventilation, Less than 24 Consecutive Hours, Continuous Positive Airway Pressure (ICD-10-PCS; principal; 2024-01-25)
PROC: 5A09357 Assistance with Respiratory Ventilation, Less than 24 Consecutive Hours, Continuous Positive Airway Pressure (ICD-10-PCS; 2024-01-28)
DX: J44.1 Chronic obstructive pulmonary disease with (acute) exacerbation (principal); J18.9 Pneumonia, unspecified organism; D53.9 Nutritional anemia, unspecified; J44.0 Chronic obstructive pulmonary disease with (acute) lower respiratory infection; Z79.899 Other long term (current) drug therapy
CPT/HCPCS: 36415; 36600; 71045; 71250; 80048; 80053; 80061; 82375; 82550; 82553; 82805; 83880; 84439; 84443; 84484; 85025; 86705; 87340; 93005; 94640; 94660; 97161; 97166; 97535; 99285; J0610; J0696; J1650; J1940; J1956; J2920; J3490